=== PATIENT | male | born 1985 | race Caucasian/White ===

== ENCOUNTER 2020-08-09 01:15 | Day surgery (SDC) | payer OTHER, SELFPAY ==
[2020-08-06 15:23] VITALS: BMI 31.4
--- NOTE | 2020-08-08 09:51 | WPDANESEPPF ---
Anes - Initial Pre Proc Eval Procedure: Operation Date: 08/09/20 08:30 Proposed Procedures p Remove Lesion Of Anterior Maxilla - Magdiel Salazar DMD Date/Time: 08/08/20 09:51 Surgeon: Magdiel Salazar DMD Pre Op Diagnosis: lesion of maxilla Patient Data Age: 35 Gender: M Height: 1.83 m Weight: 105 kg Allergies Allergy/AdvReac Type Severity Reaction Status Date / Time Penicillins Allergy Unknown Hives Verified 08/06/20 15:22 Home Medications Medication Instructions Recorded Confirmed Type No Home Medications 08/06/20 08/06/20 History Patient hx anesthesia problems: none Family hx anesthesia problems: none PMFSH Past Medical History Medical History Obesity SIMON on CPAP Smoker Family History Family History (Updated 10/19/18 @ 16:13 by DOCTOR UNKNOWN) Mother Diabetes mellitus Father Family history of chronic obstructive pulmonary disease Social History Social History Smoking packs per day: 0.34 Smoking cigarettes per day: 6.8 Years smoked: 17 Smoking pack-years: 5.78 Smoking status: Current every day smoker Smoking end date: 02/23/18 Alcohol intake: current Drinks per week: 20 Substance use: never Living arrangements: with family Additional living arrangements comments: Spiritual care concerns: No Anes - Eval Final PreProcedure Day of Procedure 08/08/20 09:51 Patient weight: overweight Heart: regular rate and rhythm Lungs: clear to auscultation and normal air movement Airway: Mallampati scale class II Neurological: alert and oriented Last oral intake: >/= 8 hours ASA classification: II Emergent: no Anesthetic plan: proceed Anesthesia type and monitoring: general ETT Informed Consent: The patient's anesthetic plan and its attendant risks and benefits were discussed with the patient/family/POA. Questions were solicited and answers provided to the satisfaction of the patient/family/POA.
[2020-08-09] VITALS (8 sets, daily range): BP systolic 120–150; BP diastolic 67–91; PULSE 70–93; RESP 17–22; TEMP 36.4–36.6; O2SAT 96–100
--- NOTE | 2020-08-09 07:28 | WPDHPUPDATE1 ---
History and Physical Update Update Date/Time: 08/09/20 07:28 History and Physical has been reviewed, including an updated exam of the patient. There are NO changes in the patient's condition. Risks, benefits, and alternatives have been discussed and questions answered. Patient agrees to proceed with procedure.
--- NOTE | 2020-08-09 07:28 | PM.IMHP ---
H&P: HPI History of Present Illness Date/Time: 08/09/20 07:28 Chief Complaint: lesion in jaw PMFSH Past Medical History Medical History Obesity SIMON on CPAP Smoker Family History Family History (Updated 10/19/18 @ 16:13 by DOCTOR UNKNOWN) Mother Diabetes mellitus Father Family history of chronic obstructive pulmonary disease Social History Social History Smoking packs per day: 0.34 Smoking cigarettes per day: 6.8 Years smoked: 17 Smoking pack-years: 5.78 Smoking status: Current every day smoker Smoking end date: 02/23/18 Alcohol intake: current Drinks per week: 20 Substance use: never Living arrangements: with family Additional living arrangements comments: Spiritual care concerns: No Meds Home Medications and Allergies Home Medications Medication Instructions Recorded Confirmed Type No Home Medications 08/06/20 08/06/20 History Allergies Allergy/AdvReac Type Severity Reaction Status Date / Time Penicillins Allergy Unknown Hives Verified 08/06/20 15:22 Assessment and Plan Assessment and plan (1) Radiolucent lesion in maxilla: Code(s): M27.9 - Disease of jaws, unspecified Status: Acute Assessment and Plan: lesion in maxilla. biopsy lesion
[2020-08-09] MEDS: LACTATED RINGERS 1,000 ML 30 ML IV CONT (08:10)
[2020-08-09] MEDS: LIDOCAINE 2%-EPI (FOR DENTAL BLOCK) 1.7 ML CARTRIDGE INFILTRATE (09:06)
--- NOTE | 2020-08-09 09:16 | SUR.OPER ---
pt given afrin in preop by gabbie hidalgo.
--- NOTE | 2020-08-09 09:32 | P.OPB_ITS ---
Procedure Note - Brief Procedure Note - Brief Date of procedure: 08/09/20 Pre-op diagnosis: lesion of maxilla Surgeon: Magdiel Salazar, KEITH Preoperative diagnosis maxillary lesion. Postop diagnosis same. Estimated blood loss minimal complications none anesthesia general anesthesia. Local anesthetic with 2% lidocaine with epinephrine. Description of the procedure. Patient was encountered in the operating room under the care of the anesthesia service who induced a general anesthetic. Patient was draped in the usual manner for an intraoral surgical procedure. Oral cavity was suctioned free debris and throat pack was placed. Local anesthetic administered. Fifteen blade used to make a crystal and palatal Petterchak killer incision. Full- thickness flaps elevated the palate exposing the maxillary lesion which was tightly adhered to the palatal mucosa. The lesion was sharply dissected with blade and cautery from the palatal tissue. There was a perforation of the palatal tissue created this was closed using 4.0 chromic gut suture in interrupted fashion. The lesion was found to be cystic in nature and was enucleated from the bony crypt and the neurovascular bundle was using electrocautery and the specimen was removed and sent for evaluation. The wound was then irrigated. The bony crypt was packed with S[place] and the wound was closed using 4 0 chromic gut suture in interrupted fashion. The oral cavity was suctioned free of debris and the throat pack was removed. Gauze packing was placed. Care the patient was returned to the Anesthesia Service extubate the patient transferred to recovery in stable condition.
[2020-08-09] MEDS: fentaNYL CITRATE INJ (*CRX) 100 MCG/2 ML VIAL 25 MCG IV PUSH ×4 (09:51→09:58)
[2020-08-09] MEDS: oxyCODONE HCL (*CRX) 5 MG TAB IR PO (10:25)
== END 2020-08-09 11:10 | disposition home or self-care (01) ==
PROVIDERS: PCP Nurse Practitioner Family; Visit Provider Dentist
PROC: (CPT 20240; principal; 2020-08-09 09:30)
DX: M27.8 Other specified diseases of jaws (principal); G47.33 Obstructive sleep apnea (adult) (pediatric); F17.210 Nicotine dependence, cigarettes, uncomplicated; E66.9 Obesity, unspecified; Z68.32 Body mass index [BMI] 32.0-32.9, adult
CPT/HCPCS: 21030; A9270; J0330; J1100; J2250; J2405; J2704; J3010; J7120